=== PATIENT | female | born 1960 | race Caucasian/White ===

== ENCOUNTER 2017-03-27 09:27 | Day surgery (SDC) | payer MEDICARE, OTHER ==
[~2017-03-27 09:27] MED LIST: HYDROmorphone HCL 2 MG/ML VIAL IV PRN; RINGER'S SOLUTION,LACTATED 1,000 ML IV PRN; ceFAZolin SODIUM 1 GM VIAL IV PRN; oxyCODONE HCL/ACETAMINOPHEN 1 TAB TABLET PO PRN
[2017-03-27] MEDS ORDERED: RINGER'S SOLUTION,LACTATED 1,000 ML IV ONE (09:55)
[2017-03-27] MEDS ORDERED: BUPIVACAINE HCL 50 ML VIAL IJ ONE ×2 (11:20)
--- NOTE | 2017-03-27 11:46 | POSTOP NO ---
Date of Surgery: 03/27/17 Patient Tolerated the Procedure: Well Post Operative Diagnosis/Procedures: Social Work Faculty Member: Jonathan Santillan PA-C Post-operative Diagnosis: Right thumb de Quervain's tenosynovitis Finding: Above Procedure: Right thumb de Quervain's release of first dorsal compartment Estimated Blood Loss: Minimal Specimens: None
[2017-03-27 12:59] VITALS: BP 116/63
== END 2017-03-27 09:28 | disposition home or self-care (01) ==
LOC: AMB 09:27
PROVIDERS: ATTEND Orthopaedic Surgery
PROC: 0LN50ZZ Release Right Lower Arm and Wrist Tendon, Open Approach (ICD-10-PCS; principal; 2017-03-27)
DX: M65.4 Radial styloid tenosynovitis [de Quervain]

== ENCOUNTER 2017-04-02 11:51 | Emergency (ER) | payer MEDICARE, OTHER ==
[2017-04-02 12:06] VITALS: BP 160/92
[2017-04-02] MEDS ORDERED: KETOROLAC TROMETHAMINE 60 MG/2 ML VIAL IM ONE ×2 (12:16→12:17)
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
== END 2017-04-02 12:37 | disposition home or self-care (01) ==
LOC: ER 11:51
DX: B02.23 Postherpetic polyneuropathy (principal); F17.200 Nicotine dependence, unspecified, uncomplicated; K21.9 Gastro-esophageal reflux disease without esophagitis; F41.9 Anxiety disorder, unspecified; F32.9 Major depressive disorder, single episode, unspecified

== ENCOUNTER 2017-04-12 10:08 | Emergency (ER) | payer MEDICARE, OTHER ==
[2017-04-12 10:29] VITALS: BP 140/111
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
== END 2017-04-12 11:05 | disposition home or self-care (01) ==
LOC: ER 10:08
DX: B02.9 Zoster without complications (principal); K21.9 Gastro-esophageal reflux disease without esophagitis; F41.9 Anxiety disorder, unspecified; F17.200 Nicotine dependence, unspecified, uncomplicated

== ENCOUNTER 2017-04-24 11:16 | Emergency (ER) | payer MEDICARE, OTHER ==
[2017-04-24 11:33] VITALS: BP 150/102
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
== END 2017-04-24 12:03 | disposition home or self-care (01) ==
LOC: ER 11:16
DX: B02.23 Postherpetic polyneuropathy (principal); G89.29 Other chronic pain; F41.9 Anxiety disorder, unspecified; F32.9 Major depressive disorder, single episode, unspecified; M79.7 Fibromyalgia; K21.9 Gastro-esophageal reflux disease without esophagitis; E03.9 Hypothyroidism, unspecified; I10 Essential (primary) hypertension; E78.5 Hyperlipidemia, unspecified; G43.909 Migraine, unspecified, not intractable, without status migrainosus; F17.210 Nicotine dependence, cigarettes, uncomplicated